=== PATIENT | male | born 1980 | race Caucasian/White ===

== ENCOUNTER 2019-02-27 20:41 | Emergency (ER) | payer SELFPAY ==
--- NOTE | 2019-02-27 20:52 | ED Physician Documentation ---
General Adult - HISTORIAN Historian: patient - HPI Stated Complaint: right face cellulitis Chief Complaint: Skin Rash Onset: days ago (4) Timing: still present Severity: moderate Further Comments: yes (He states 4 days ago he started with a small area on the right side of his face. He did note he " popped it last night and got some drainge out of it that was yellow" he has take a few antibotics from home he is not sure what the meds were and they were not the same. HE thinks he might have had a fever but did not measure. He has not had any OTC meds for pain today. History of MRSA) - ROS CONST: fever MS/SKIN/LYMPH: rash - PAST HX Past History: none Immunizations: UTD Allergies/Adverse Reactions: Allergies Allergy/AdvReac Type Severity Reaction Status Date / Time oats Allergy Verified 02/27/19 20:56 Home Medications: Ambulatory Orders Medication Instructions Recorded NK 02/27/19 - SOCIAL HX Smoking History: cigarettes Alcohol Use: none Drug Use: none - FAMILY HX Family History: No - REVIEWED ASSESSMENTS Nursing Assessment Reviewed: Yes Vitals Reviewed: Yes General Adult Physical Exam - PHYSICAL EXAM GENERAL APPEARANCE: no distress EENT: eye inspection normal, no signs of dehydration NECK: normal inspection RESPIRATORY: no resp distress, chest non-tender, breath sounds normal CVS: reg rate & rhythm, heart sounds normal, equal pulses ABDOMEN: soft, no distension BACK: normal inspection SKIN: warm/dry, other (area on right side of face raised not firm crusted and one healing area behind his right ear. no streaking . NO gum involvement . Gums lip and inside jaw without obvious in exam ) EXTREMITIES: non-tender, normal range of motion, no evidence of injury, no edema NEURO: oriented X3 Discharge Clincal Impression: Abscess Referrals: Primary Doctor,No [Primary Care Provider] - 2 Days Comments: 1. Keflex 500 mg take 1 by mouth twice daily x 10 days 2. OTC meds as directed as needed for pain or fever 3. Follow up with PCP in 2 days 4. Return to ER for any increasing concerns Condition: Stable Disposition: 01 HOME, SELF-CARE Decision to Admit: NO Date of Decison to Admit: 02/27/19 Decision Time: 21:11
[2019-02-27 21:02] VITALS: BP 130/77
[2019-02-27] MEDS: CEPHALEXIN 250 MG CAPSULE PO ONE (21:15)
== END 2019-02-27 21:18 | disposition home or self-care (01) ==
LOC: ED 20:41
DX: L02.01 Cutaneous abscess of face (principal)
CPT/HCPCS: 99282; 99283